=== PATIENT | female | born 1965 | race Caucasian/White ===

== ENCOUNTER 2024-03-26 10:19 | Outpatient (CLI) | payer MEDICARE, SELFPAY ==
--- NOTE | ~2024-03-26 | MR_ITS ---
MRI of the lumbar spine Clinical History: Back pain, radiculopathy Technique: Axial T2-weighted images, and sagittal T1-weighted, T2-weighted, and STIR images were acqu ired. Findings: There is posterior fusion from L4 to L5, with bilateral rods and transpedicular screws. The re is probable laminectomy defect of L4. No suspicious bone marrow signal abnormality seen. At L1-L2 and L2-L3, there is no disc bulge or herniation. There is moderate to advanced facet arthrop athy at these levels. No spinal canal stenosis or neural foraminal narrowing at these levels. At L3-L4, there is minimal disc bulge and severe facet arthropathy. There is moderate to severe spina l canal stenosis/thecal sac compression. Neural foramina are preserved. At L4-L5, there is minimal disc bulge. No spinal canal stenosis or neural foraminal narrowing. At L5-S1, there is minimal disc bulge with moderate facet arthropathy. No central canal stenosis or d efinite neural foraminal narrowing. Paravertebral soft tissues are unremarkable, aside from expected postoperative change. Impression: Advanced degenerative spondylosis at L3-L4, as above. Post surgical changes from L4 to L5. Reviewed, dictated and finalized at location . PER [employer] Impression: Advanced degenerative spondylosis at L3-L4, as above. Post surgical changes from L4 to L5.
== END 2024-03-26 10:20 | disposition home or self-care (01) ==
LOC: GOSHIMG 10:20
PROVIDERS: PCP Physician Assistant
DX: M47.896 Other spondylosis, lumbar region (principal); Z98.890 Other specified postprocedural states
CPT/HCPCS: 72148